=== PATIENT | female | born 1945 | race African-American/Black ===

== ENCOUNTER → 2017-02-06 | Outpatient (CLI) | payer MEDICARE, OTHER ==
[~2017-02-06] MED LIST: APAP/OXYCODONE1 TA1 PO; ASPIRIN 81MG TA81 MG PO; CALCIUM WITH V1 EAC1 PO; CELEBREX 100MG100 MG PO; CELEBREX100 MG PO; CRESTOR10 MG PO; CYANOCOBAL1000 MCG/1; GABAPENTIN100 MG; JANUVIA50 MG PO; KAPIDEX60 MG; LOSARTAN POTASS25 MG PO; METHOTREXATE 22.5 MG PO; METOPROLOL SUCC25 M2 PO; PEN-VK500 MG PO; PREDNISONE 2.52.5 MG PO; PREDNISONE 5MG.5 MG PO; TYLENOL ES500 MG PO; TYLENOL W/CODEI1 TA2 PO; VITAMIN D1000 IU; XELJANZ5 MG
--- NOTE | 2017-02-07 05:19 | RADIOLOGY REPORT PS360 ---
EXAM: CT LUNG LOW DOSE WO CONTRAST COMPARISON: None HISTORY: 71-year-old female asymptomatic with smoking history ORDERING PHYSICIAN: Christian Gary MD PATIENT AGE: 71 years TECHNIQUE: The exam was performed on a GE Light Speed [address] scanner using is 2.94 mGy CTDI. A low dose helical CT CHEST was performed on a multi-detector scanner The LDCT was performed in a facility that meets the criteria for the screening program. Data regarding this exam was submitted to [employer] which is an approved registry. The order for this exam indicates that it came as a result of a lung cancer screening counseling shard decision-making visit that included all the elements required of such a visit including smoking cessation. The radiologist interpreting this exam meets the [facility] criteria for the LDCT lung cancer screening program. The exam is reported using the Lung-RADS classification scale and reported to the [employer] registry. NOTE: This study was performed for the specific purposes of lung cancer screening and is not an alternative to diagnostic chest CT. RADIATION DOSE: CTDI vol(CT dose Index-volume) = 2.94mG DLP (Dose Length Product) = 102.27 mGcm FINDINGS: Mild centrilobular emphysematous changes are present with scattered areas of scarring in the apices, lingula, and right lower lobe. Hyperinflation with attenuation of peripheral pulmonary vessels and bronchial thickening consistent with COPD 5 mm noncalcified nodule is present in the left upper lobe There is cardiomegaly with thickening of the pericardium measuring up to 17 mm posteriorly consistent with pericardial effusion. Coronary artery calcifications are also present. Left lobe of the thyroid gland is enlarged. Suspect underlying nodules measuring at least 14 mm. Consider thyroid ultrasound for further evaluation. There is a 4 mm stone in the left kidney upper pole nonobstructing. IMPRESSION: 1. Lung RADS Category: 3, probably benign 2. Other findings: Cardiomegaly with pericardial effusion and coronary artery disease COPD with centrilobular emphysematous change Enlarged left lobe of thyroid gland with 14 mm nodule Left renal stone nonobstructing RECOMMENDATIONS: 6 monthd LDCT follow-up Thyroid ultrasound
== END ==
LOC: RAD 12:43
DX: Z87.891 Personal history of nicotine dependence (principal); Z12.2 Encounter for screening for malignant neoplasm of respiratory organs
CPT/HCPCS: G0297

== ENCOUNTER → 2017-03-03 | Outpatient (CLI) | payer MEDICARE, OTHER ==
--- NOTE | 2017-03-03 14:24 | RADIOLOGY REPORT PS360 ---
US THYROID HISTORY: ABNORMAL THYROID EXAM ORDERING PHYSICIAN: Christian Gary MD PATIENT AGE: 71 years COMPARISON: FINDINGS: The right lobe is small measuring 1.6 x 0.9 x 1.2 cm with history of partial thyroidectomy. There is a 1.1 x 0.8 cm solid nodule within the right lobe unchanged the previous exam. The left lobe is 3.6 x 1.4 x 2.7 cm. 14 x 6 mm solid nodule upper pole on the left unchanged. Mixed cystic and solid 11 mm nodule upper pole anteriorly probably not significant changed. 6 mm solid nodule mid polar region unchanged. IMPRESSION: No change multiple bilateral thyroid nodules
== END ==
LOC: RAD 02-27 15:00
DX: R94.6 Abnormal results of thyroid function studies (principal)